=== PATIENT | male | born 1955 | race Caucasian/White ===

== ENCOUNTER 2020-11-30 00:59 | Inpatient (IN) | payer OTHER ==
[~2020-11-30] VITALS: Ht 185.4 cm; Wt 99.0 kg
--- NOTE | 2020-11-30 06:00 | NUR ---
PT ARRIVED TO ROOM 126 AT 0450 VIA STRETCHER, ABLE TO STAND AND TRANSFER SELF TO BED. PT IS ALERT/ORIENTED, REPORTS 10/10 EPIGASTRIC/STERNAL PAIN. LUNGS CLEAR, FINE CRACKLES IN BASES, ARRIVED ON 2L O2 VIA NC, BY THIS TIME, OXYGEN TITRATED TO 10L VIA OXYMASK. NON-PRODUCTIVE COUGH PRESENT. BOWEL TONES ACTIVE, NAUSEATED, DRY HEAVING WITH SMALL AMOUN OF EMESIS. SKIN GROSSLY INTACT WITHOUT EDEMA. IV PATENT, NEW 20G IV PLACED IN LEFT WRIST ON FIRST ATTEMPT. POTASSIUM AND MAGNESIUM REPLACED. DR. WELLER CALLED FOR PRN MEDS FOR COUGH, PAIN, AND NAUSEA. PT MEDICATED WITH 1MG IV DILAUDID, ZOFRAN, AND TESSALON PERLES. PT RESTING COMFORTABLY AFTER PAIN MEDS. CALL LIGHT WITHIN REACH.
--- NOTE | 2020-11-30 09:10 | NUR ---
PT WAKES EASILY AND IS ALERT AND ORIENTED. PT C/O 8/10 ABD/EPIGASTRIC PAIN, 1 MG IV DILAUDID GIVEN. PT GIVEN PILLS WITH SIPS OF WATER, ABLE TO JOSE EASILY. PT IS ABLE TO USE CALL LIGHT APPROPRIATLY. VITALS ARE WNL AT THIS TIME. PT REPORTS FEELING VERY FATIGUED. DENIES ANY OTHER NEEDS. BOTH IV SITES ARE INTACT, NO REDNESS OR SWELLING NOTED, BOTH FLUSH EASILY, PT DENIES PAIN AT EITHER SITE. CALL LIGHT IS WITHIN REACH, URINAL AT THE BEDSIDE.
--- NOTE | 2020-11-30 09:40 | NUR ---
PT GIVEN 650 MG PO TYLENOL FOR TEMP OF 101.3
--- NOTE | 2020-11-30 13:00 | NUR ---
Update from Rn, pt requiring 10L 02.
--- NOTE | 2020-11-30 13:12 | NUR ---
PT HAS LUNCH IN FRONT OF HIM AT THIS TIME, AND STATES THAT AFTER EATING AND COUGHING HIS ABD/EPIGASTIRC PAIN IS NOW AT 7/10, 1 MG IV DILAUDID GIVEN. PT ABLE TO ONLY EAT 3 BITES OF HIS SANDWICH. TAKES SIPS OF WATER.
--- NOTE | 2020-11-30 14:35 | EKG ---
[facility] [address] [facility] [place] [address] Signed Normal sinus rhythm Nonspecific T wave abnormality Abnormal ECG No previous ECGs available Confirmed by MONICA WELLER MD ([id number]) on 11/30/2020 2:35:42 PM Electronically Signed By: MONICA WELLER MD 11/30/20 1435 PATIENT NAME: EMRE GRIMES GRACIE Electrocardiogram DATE OF : 57 PHYSICIAN: MONICA WELLER MD REPORT #: [id number] REPORT IS CONFIDENTIAL AND NOT TO BE RELEASED WITHOUT AUTHORIZATION
--- NOTE | 2020-11-30 15:38 | NUR ---
MED REC COMPLETE
--- NOTE | 2020-11-30 16:40 | NUR ---
PT WAKES EASILY TO NOISE IN THE ROOM. PT DENIES NEED FOR PAIN MEDICATION AT THIS TIME. PT VITALS ARE WNL. PT USES URINAL AT THE BEDSIDE. PT DENIES ANY OTHER NEEDS AT THIS TIME. PT REPORTS BEING VERY TIRED.
--- NOTE | 2020-11-30 18:52 | NUR ---
PT ARRIVED TO FLOOR FROM CCU. PT IS TIRED BUT ORIENTED. 10L OXYMASK IS IN PLACE. PT LYING ON LEFT SIDE. VITALS TAKEN AND STABLE. DENEIS NEEDS. CALL LIGHT IN REACH.
--- NOTE | 2020-11-30 20:14 | NUR ---
awake, alert, O2 10L Oxymask 88-91%. proning encouraged, currently laying on L side, reinforce teaching, semi receptive. coop with assessment. lungs with insp fine crackles t/o. LBM 11/29. 2 SL Sarah patent. dry cough present. denies need ofr pain med or cough syrup. cont on airborne precautions
--- NOTE | 2020-11-30 23:11 | NUR ---
RESATING, CPOX IN PLACE, SATS 94%, O2 10L OXYMASK, LAYING ON R SIDE, PRONE POSITION, VOIDED LARGE AMOUNT OF DARK YELLOW URINE. USES URINAL, NO DISTRESS, FLUIDS AND CALL LIGHT AT BEDSIDE
--- NOTE | 2020-12-01 | NUR ---
awake, cpox in place, sats 86%, pt had taken oxymask off due to increased cough. proning position to r side, i was on my belly myback hurts, and i started coughing" stated. Oxymask 10L back on, sats 89-92%. R24. medicated with robitussin per requests, fresh water, voiding qs, [facility]inal[facility],
--- NOTE | 2020-12-01 02:00 | NUR ---
resting, O2 Oxymask in place, turns and repositions self, cpox 91%
--- NOTE | 2020-12-01 04:26 | NUR ---
Pt transferred to room 118 from ICU at change of shift. alert and oriented. tolerating liquids well, no emesis. O2 10L Oxymask, CPOx at bedside 88-92%, R 18-24, sob with exertion when turning or talking noted, lungs with crackles t/o and dim at bases. turns and repositions self. voiding QS using urinal. SL patent. Received Tylenol per c/o h/a, and robitussin syrup per cough both effective. Continues to have occassional moist productive at times of clear to yellow sputum. uses call light, alert and orneted independent inroom.
--- NOTE | 2020-12-01 07:25 | NUR ---
dr sierra notified of known if pt got Klor-Con 30mEq po and GI Cocktail as ordered at 1700. while pt was a pt in ICU. and of this am K level of 4.0. "Oh ok, thanks", no new orders
--- NOTE | 2020-12-01 08:00 | NUR ---
RECEIVED REPORT AROUND 0700. PT IN ROOM SLEEPING AT THAT TIME. UPON ENTERING PT ROOM IT WAS NOTED THAT O2 SATS WERE IN THE LOW TO MID 80'S% ON 10L O2 OXY MASK. PT WAS INCREASED AT FIRST TO 12L 02 AND THEN TO 15L O2 WITH O2 SATS THEN AROUND 88-90%. RT WAS CALLED TO PUT PT ON HIGH FLOW NC. UPPER LOBES CLEAR, ALL OTHER LOBES HAVE CRACKLES PRESENT. PT WORK OF BREATHING IS MODERATE. ABD SOUNDS MORE ON THE HYPOACTIVE SIDE. ABD IS TENDER TO TOUCH. NO OTHER ISSUES WERE NOTED WITH ASSESSMENT. PT ALSO DID STATE THAT HE WAS FEELING MUCH WORSE TODAY IN COMPARISON TO YESTERDAY. WILL CONTINUE TO MOINTOR.
--- NOTE | 2020-12-01 10:00 | NUR ---
PT IN ROOM. STILL ON 15L OXY MASK AND ON 15L HIGH FLOW NC. NO NEW CONCERNS NOTED AT THIS TIME.
--- NOTE | 2020-12-01 11:35 | NUR ---
ABG BLOOD GAS WAS DONE. LUNG CT DONE. BI-PAP ORDER IN AND RT WILL PUT PT ON BI-PAP. WAITING ON CT RESULTS. PT BACK IN BED. LINENS CHANGED WHILE IN CT. PT ALSO DUE TO VOID.
--- NOTE | 2020-12-01 12:58 | NUR ---
UPPER LOBES CLEAR, ALL OTHER LOBES HAVE CRACKLES PERSENT. PT ON BI-PAP AND O2 SATS ARE >90% SO FAR. PT JUST VOIDED 400MLS. THIS IS FIRST VOID OF THIS SHIFT. PT HAS NO APPETITE AT ALL. ABD SOUNDS PRESENT, PT DENIES TENDERNESS AT THIS TIME. NO NEW CONCERNS WERE NOTED. WILL CONTINUE TO MONITOR.
--- NOTE | 2020-12-01 15:24 | NUR ---
PT SO FAR ONLY VOIDED 400MLS. MD EMERSON IS AWARE. PT CAME OFF BI-PAP IN ORDER TO DRINK SOME ENSURE. O2 SATS QUICKLY DROPPED TO 80% ON RA. UPPER LOBES ARE CLEAR, ALL OTHER LOBES HAVE CRACKLES PRESENT. NO NEW CONCERNS HAVE BEEN NOTED AT THIS TIME.
--- NOTE | 2020-12-01 17:22 | NUR ---
AT START OF SHIFT PT O2 WAS INCREASED TO 15L HIGH FLOW NC BECAUSE PT O2 SATS WERE IN THE 80'S. PT ENDED UP ON 15L HIGH FLOW AND 15L OXY MASK AT THE SAME TIME TO MAINTAIN HIS O2 SATS >90%. PT WAS PUT ON C-PAP AND HAS BEEN DOING MUCH BETTER SINCE. O2 SATS >92% AND HIS WORK OF BREATHING HAS ALSO LESSEND. V/S WDL OVERALL, ABD PAIN HAS SUBSIDED PT HAS NOT HAD ANY N/V SO FAR THIS SHIFT. URINE OUTPUT OVERALL IS MARGINAL THOUGH. MD EMERSON AWARE. UPPER LOBES ARE CLEAR, LOWER LOBES HAVE CRACKLES PRESENT.NO OTHER ISSUES WERE NOTED WITH ASSESSMENTS. CHEST CT WAS DONE TO RULE OUT PE THIS MORNING ALSO.
--- NOTE | 2020-12-01 18:09 | NUR ---
Attempted to speak with pt, he has CPAP in place with 02. Called his Life partner Oskar. She states they live in [place]. 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 There street address is [address] [place] [address]. Pt does not have a pcp and Oskar would like to get him established with PFM where she is seen. I will send his chart. Anastasia sed possibility of 02 on DC. Oskar would like Alvin from [place]. Pt plans on dc to home on discharge.
--- NOTE | 2020-12-01 19:44 | NUR ---
RECIEVED REPORT FROM OSVALDO SHELL ON THIS PATIENT. HE IS CURRNLTY COVID +. PATIENT IS ON CPAP AT 80% FIO2, USES URINAL TO VOID AND HAS BEEN DRINKING FLUIDS.CALL LIGHT IN REACH WILL GO CHECK IN ON PATIENT TO DO ASSESSMENT.
--- NOTE | 2020-12-01 21:44 | NUR ---
IN ROOM TO DO PATIENT ASSESSMENT. PATIENT CONTINUES TO BE ON CPAP AT 80% FIO2. PATIENT HAS VOIDED 175 ML DARK URINE IN BEDSIDE URINAL. PATIENT DENIES ANY OTHER NEEDS AT THIS TIME. CALL LIGHT IN REACH
--- NOTE | 2020-12-01 23:21 | NUR ---
AT PATIENT'S DOOR TO CHECK ON HIM. HE IS LAYING ON HIS RIGHT SIDE, REMAINS ON CPAP AT 80% FiO2. ASKED PATIENT IF HE WAS DOING OK AND NEEDED ANYTHING RIGHT NOW HIS EYES WERE OPENED. HE STATES "NO" GIVES A THUMBS UP. CALL LIGHT IN REACH.
--- NOTE | 2020-12-02 02:22 | NUR ---
CHECKED ON PATIENT. HE IS ASLEEP WITH CPAP REMAINS ON 80% FiO2. CALL LIGHT IN REACH.
--- NOTE | 2020-12-02 04:00 | NUR ---
in room to check on patient and obtain vitals. he has drank 200 ml of water has not voided since last void recorded. has urinal. encouraged to continue drinking fluids for hydration. patietn was asleep prior to RN coming in, remains on CPAP 80% FiO2. call light in reach lying on right side withhead of bed elevated.
--- NOTE | 2020-12-02 04:50 | NUR ---
COLLECTED BLOOD FROM PATIENT AND SENT TO LAB
--- NOTE | 2020-12-02 06:43 | NUR ---
PATIENT HAS REMAINED ON CPAP AT 80% FiO2 THROUGHOUT THE NIGHT, HAS NOT HAD ANY NEEDS APPEARED TO HAVE SLEPT MOST OF THE NIGHT. USED URINAL TWICE, VOIDED DARK URINE . ENCOURAGED TO CONTINUE DRINKING FLUIDS.
--- NOTE | 2020-12-02 06:55 | NUR ---
IN TO TAKE PT WATER, PT WANTED TP BURNS TEETH, SWITCHED TO HIGHFLOW NG, PT O2 STILL LOW, RN COMING BACK TO THE ROOM, PT NOW ON TELE#1 TO MONITOR O2
--- NOTE | 2020-12-02 07:14 | NUR ---
REPORT RECEIVED FROM SUMAYA ESTES. PT SITTING UP IN BED BRUSHING TEETH WITH YULISSA HARRISON. PT ON 16L O2 BY [place] WITH OXYGEN SATURATIONS 79-81%. PT DENIES ADDITIONAL REQUESTS OR COMPLAINTS. CALL LIGHT WITHIN REACH. BED RAILS UP.
--- NOTE | 2020-12-02 07:38 | NUR ---
MORNING ASSESSMENT AND MEDICATION DUE. PT LYING ON LEFT SIDE WITH OXYGEN SATURATIONS 88-93% ON 16L O2 BY [place]. PT REPORTS HE HAS NOT BEEN PRONING DUE TO BACK PAIN. PT REPORTS 5/10 BACK PAIN AND BODY ACHES AT THIS TIME. PT ENCOURAGED TO TRY MEDICATIONS FOR HIS BODYACHES, AGREES, SEE MAR FOR MEDICAITON GIVEN. PT DENIES NAUSA. NO IV PRESENT IN RIGHT WRIST, IV DC'D, UNKNONW TIME WHEN THIS IV WAS TAKEN OUT. PT REPORTS HE WAS ABLE TO GET A GOOD NIGHTS SLEEP AND FELT THAT HE WANTED TO GET UP AND WALK AROUND THIS MORNING, HOWEVER AFTER BRUSHING HIS TEETH AND SITTING UP PT REPORTS "THAT WAS ALL I COULD DO, NOW IM WORN OUT." INSPIATORY WHEEZE NOTED THROUGHOUT LUNGS WITH CRACKELS IN LOWER LOBES. I.S. USE TAUGHT TO PT AND INSPIATORY WHEEZE RESOLVES. PT HAS FREQUENT COUGHING EPISODES AND REPORTS HE IS UNABLE TO TAKE DEEP BREATHS RELATED TO COUGHING, PT ENCOURAGED TO TRY COUGH MEDICATION, AGREES, SEE MAR FOR MEDICATION GIVEN. PT REPORTS HE HAS STARTED TO COUGH UP YELLOW SPUTUM IN SMALL AMOUNTS. PT DENIES DIARRHEA AND ANY LOSS OF TASTE OR SMELL. PT CONTINUES TO HAVE POOR APPITITE, CLEAR ENURE PROVIDED, PT DECLINES BREAKFAST. LOW URINE OUTPUT NOTED, WATER ENCORUAGED, PT ABLE TO DRINK 200ML, WATER REFILLED. PT REPORTS DRY THROAT FROM CPAP USE AND REQUESTS A BREAK FROM CPAP USE. PT AGREES TO TRY PRONE POSITION. PT ASSISTED INTO PRONING POSITION, SUPPORTED WITH PILLOWS. O2 SATRATIONS CLIMB TO 95% ON 15L O2 BY [place]. PT DENIES ADDITIONAL REQUESTSON OR COMPLAINS. CALL LIGHT WITHIN REACH. BED RAILS UP.
--- NOTE | 2020-12-02 09:14 | NUR ---
THIS RN TO ROOM TO CHECK ON PT. PT RESTING ON RIGHT SIDE, O2 SATURATIONS 90-98% ON 16L O2 BY NC. SCHAEFER, RT , TO BEDSIDE TO SET UP VAPOTHERM. EDUCATION DONE WITH PT REGARDING VAPOTHERM USE AND PURPOSE. PT VERBALIZES UNDERSTANDING AND STATES HE WANTS TO WAIT TO START VAPOTHERM USE UNTIL AFTER HE RESTS A WHILE LONGER IN PRONING POSIITON. PT REPOSITIONS SELF TO PRONE. NO ADDITIONAL REQUESTS OR COMPLAINTS. CALL LIGHT WITHIN REACH.
--- NOTE | 2020-12-02 10:03 | NUR ---
THIS RN TO ROOM TO CHECK ON PT. PT REMAINS IN PRONING POSITION WITH OXYGEN SATRUATIONS 90-95% ON 15L O2 BY NC. PT CONTINUES TO STATE HE WOULD LIKE TO REMAIN ON NC OPPOSED TO VAPOTHERM AT THIS TIME. PT REPOSITIONS SELF TO RIGHT SIDE. O2 SATURATIONS REMAIN ABOVE 90% ON 15L O2 BY NC. PT DEMONSTRATES USE OF I.S. REACHING 1500 X3. PT DENIES ADDITIONAL REQUESTS OR COMPLAINTS. CALL LIGHT WITHIN REACH. BED RAILS UP.
--- NOTE | 2020-12-02 10:30 | NUR ---
RETURN CALL PLACED TO [facility] FOR UPDATE FOR UPDATE ON PT STATUS. NO ANSWER AT THIS TIME. MESSAGE LEFT FOR CALL BACK.
--- NOTE | 2020-12-02 10:58 | NUR ---
KRISTIE RETURNED CALL. KRISTIE UPDATED ON PT STATUS AND PLAN OF CARE. KRISTIE VERBALIZES UNDERSTANDING AND STATES HER QUESTIONS HAVE BEEN ANSWERED.
--- NOTE | 2020-12-02 11:14 | NUR ---
THIS RN TO ROOM TO CHECK ON PT. PT RESTING ON RIGHT SIDE. PT DEMONSTRATES USE OF I.S. X5 REACHING 1250-1500ML. OXGYEN SATURATIONS 94-98% ON 15L O2 BY NC WHILE PT RESTS ON SIDE. PT DENIES ADDITIONAL REQUESTS OR COMPLAINTS. CALL LIGHT WITHIN REACH. BED RAILS UP.
--- NOTE | 2020-12-02 12:25 | NUR ---
LUNCH ARRIVED. PT REPORTS HE WOULD LIKE TO EAT HIS FRUIT. PT ASSISTED INTO SITTING POSITION. OXYGEN SATRATIOSN DROP TO 70%'S ON 15L O2 BY HIGH FLOW NC. PT PLACED ON VAPOTHERM WHILE SITTING AND EATING, SETTINGS 40LPM WITH 100% FIO2. OXGYEN SATRATIONS 86-89%. MD TO BEDSIDE FOR ROUNDS. MD UPDATED ON PTS STATUS.
--- NOTE | 2020-12-02 12:58 | NUR ---
AFTERNOON ASSESSMENT DUE. THIS RN TO ROOM. PT FINISHED WITH LUNCH. VERY MINIMAL APPITITE: ATE ABOUT 25% OF FRUIT PROIVDED FOR LUNCH. PT ABLE TO MAINTAIN OXYGEN SATRATIONS 87-90% ON VAPOTHERM AT 40LPM AND 100% FIO2 WHILE EATING IN SUPINE POSITION. PT DENIES NAUSEA AT THIS TIME. MINIMAL APPITITE. PT VERBALIZES UNDERSTANDING OF PLAN OF CARE EXPRESSED BY MD DURING ROUNDS. PT REPORTS 7/10 ACHING BACK PAIN. SEE MAR FOR MEDICATION GIVEN. CRACKELS NOTED IN LOWER LOBES OF LUNGS. PT ENCOURAGED TO WEAR CPAP FOR A TIME THIS AFTERNOON. PT AGREES. CPAP PLACED WTIH 80% FIO2. OXYGEN SATUATIN CLIMBES TO 96-98%. URINE OUTPUT BOARDERLINE, ORAL HYDRATION ENCOURAGED. REDDENED AREA NOTED ON SIDES OF FACE WHERE NC RUBS ON SKIN, FOAM BARRIERS APPLIED TO NC FOR FUTURE USE. LOTION APPLIED TO FACE. PT RESTING ON RIGHT SIDE, CPAP IN PLACE.NO ADDITIONAL REQUESTS OR COMPLAINS. CALL LIGHT WIHTIN REACH. BED RAILS UP.
--- NOTE | 2020-12-02 13:55 | NUR ---
VENOUS BLOOD GAS ORDERED. 5ML LAB DRAWN FROM RIGHT FORARM BY THIS RN WITH 22G BUTTERFLY NEEDLE. GAUZE AND COBAN APPLIED. PT TOLERATED PROCEEDURE WELL. PT REMAINS ON CPAP. RT CALLED TO [facility] FIO2 DWN PT HAS HAD SUSTAINED OXGYEN SATURATIONS AT 100% FOR 20 MINUTS. PT WEANED TO 60% FIO2 THROUGH CPAP. PT RESTIGN IN BED ON RIGHT SIDE. NO ADDITIONAL REQUESTS OR COMPLAINTS.
--- NOTE | 2020-12-02 14:51 | NUR ---
THIS RN TO ROOM TO CHECK ON PT. PT RESTING IN SUPINE POSITION WITH CPAP IN PLACE. OXYGEN SATURATIONS 92-96% ON CPAP WITH 60% FIO2. PT REPORTS BACK PAIN HAS IMPROVED, NOW 07/22. PT ASSISTED UP TO STAND AND VOID, CPAP LEFT IN PLACE. O2 SATURATIONS REMAIN 90%. PT BACK TO SUPINE POSITION. STATES HE WOULD LIKE TO REMAIN SO, WITH CPAP IN PLACE AT THIS TIME. PT DENIES ADDITIONAL REQUESTS OR COMPLAINTS. CALL LIGHT WITHIN REACH. BED RAILS UP.
--- NOTE | 2020-12-02 15:58 | NUR ---
PT HERE FOR COVID RELATED PNEUMONIA. PT UP WITH STAND BY ASSIST TO BEDSIDE COMODE AND TO USE URINAL, PT STEADY ON FEET BUT WEAK AND TIRES QUICKLY. PT TOLERATING REGULAR DIET BUT WITH VERY MINMIAL APPITITE. PT REMAINS ON 16L O2 BY HIGH FLOW NC WHILE PRONING OR SIDE LYING TO MAINTAIN OXYGENATION ABOVE 90%. VAPOTHERM AT 40LPM AND 100% FIO2 WHILE EATING MATINTAINS PT ABOVE 85%. PT USING CPAP WHEN SUPINE AND NOT EATING, CPAP WEANED TO 60% FIO2 THIS SHIFT WITH OXYGEN SATURATIONS ABOVE 92%. VBG LAB REPEATED, IMPROVING. PO FLUIDS ENCOURAGED. PT VOIDING QUANTITY SUFFICIENT. PT USES CALL LIGHT AND MAKES NEEDS KNOWN.
--- NOTE | 2020-12-02 16:22 | NUR ---
THIS RN TO ROOM TO CHECK ON PT. PT RESTING WITH EYES CLOSED, RESPIRATIONS EVEN AND UNLABORED, CPAP IN PLACE SET TO 60% FIO2. OXYGEN SATURATIONS 90-97%. PT ALLOWED TO REST UNDESTURBED. CALL LIGHT WITHIN REACH. BED RAILS UP.
--- NOTE | 2020-12-02 17:16 | NUR ---
DINNER ARRIVED. PT RESTING WITH EYES CLOSED IN SUPINE POSITION. PT AWAKENS TO MOVEMENT IN ROOM. PT REPRTS HE IS READY TO TRY TO EAT. PT SWITCHED FROM CPAP TO VAPOTHERM AT 40LPM AND 100% FIO2 WHILE EATING. OXGYEN SATURATIONS FALL FROM 95-98% ON CPAP AT 60% FIO2 TO 85-88% ON VAPOTHERM. PT REQUSTS COUGH MEDICATION. SEE MAR FOR MEDICATION GIVEN. NO ADDITIONAL REQUESTS OR COMPLAINTS AT THIS TIME. CALL LIGHT WITHIN REACH.
--- NOTE | 2020-12-02 17:55 | NUR ---
PT FINISHED WITH DINNER. PT ABLE TO EAT 30% OF DINNER WELL INCLUDING A CLEAR ENSURE. DRESSINGS TO IV SITES NOTED TO BE LOOSE. NEW DRESSINGS APPLIED PER PROTOCOL, SKIN PREP APPLIED. PT TOLERATED DRESSING CHANGES WELL. VITAL SIGNS STABLE. O2 STATURATIONS WHILE SUPINE 88-92% ON 40LPM 100% FIO2 VAPOTHERM. PT DENIES NEED TO VOID. PO FLUIDS ENCORUAGED. PT REPOSITIONED TO RIGHT SIDE LYING AND VAPOTHERM WEANED TO 25LPM AND 60%FIO2 WITH OXYGEN SATURATINS CONSISTANTLY ABOVE 90-95%. PT DENIES ADDITIONAL REQUESTS OR COMPLAINTS. CALL LIGHT WITHIN REACH. BED RAILS UP.
--- NOTE | 2020-12-02 19:25 | NUR ---
PATIENT RESTING IN BED ON HIS RIGHT SIDE ON VAPOTHERM 30L/MIN AT 70% FIO2. PATIENT HAS NO CURRENT NEEDS. REPORT GIVEN TO THIS RN FROM SUMAYA HEARD. PATIENT'S CALL LIGHT IS WITHIN HIS REACH.
--- NOTE | 2020-12-02 20:50 | NUR ---
O2 SAT MID 80'S IN TO ASSESS. pt SITTING IN BED ON VAPOTHERM. STATED "I CAN'T DO THIS I NEED TO BE ON CPAP" IN TO GIVE NIGHT MEDICATIONS. ASSISTED WITH CPAP, 60% FiO2. O2 SAT INCREASED TO LOW 90'S. VITALS RECORDED. NO URINE OUTPUT TO RECORD AT THIS TIME. CALL LIGHT WITHIN REACH. PRIMARY RN UPDATED.
--- NOTE | 2020-12-02 21:15 | NUR ---
PATIENT ON CPAP AT FIO2 OF 60% AND SATS IN THE MID 90'S. PATIENT ALREADY TOOK MEDS FROM JOSH CHARGE NURSE, INCLUDING SOME TYLENOL FOR A HEADACHE AND COUGH MEDICATION. PATIENT SAYS HE HAS NO NEEDS AT THIS TIME. ASSESSMENT COMPLETE AND CALL LIGHT IS IN REACH.
--- NOTE | 2020-12-02 22:39 | NUR ---
PATIENT RESTING QUIETLY ON HIS RIGHT SIDE ON HIS CPAP. SATS ARE 98% WITH A PULSE ON THE MONITOR OF 54BPM. PATIENT'S EVES ARE CLOSED AND RESPIRATIONS REGULAR. CALL LIGHT IS IN REACH.
--- NOTE | 2020-12-02 23:58 | NUR ---
WENT IN TO EMPTY PATIENT'S URINAL AND HE HAD VOIDED 275MLS. ASKED PATIENT IF THERE WAS ANYTHING THAT HE NEEDED AND IF HE WAS DOING OK. PATIENT GAVE THIS RN THE THUMBS UP. PATIENT'S CALL LIGHT IS IN REACH AND LIGHTS TURNED BACK DOWN.
--- NOTE | 2020-12-03 01:25 | NUR ---
PATIENT IS RESTING QUIETLY ON HIS RIGHT SIDE, RESPIRATIONS REGULAR, EYES ARE CLOSED, AND PATIENT REMAINS ON CPAP WITH 60% FIO2. CALL LIGHT IS IN REACH AND O2 SATS=95%.
--- NOTE | 2020-12-03 03:06 | NUR ---
PATIENT HAD TURNED TO HIS LEFT AND IS TURNING BACK TO HIS RIGHT SIDE NOW. PICKED UP THE PILLOWS THAT HAD FALLEN ON THE FLOOR AND ASKED THE PATIENT IF i COULD DO ANYTHING FOR HIM AND HE SAID,"NO I'M OK". CALL LIGHT IS IN REACH AND CPAP REMAINS ON AT 60% FIO2. O2 SATS ARE 99%.
--- NOTE | 2020-12-03 05:00 | NUR ---
PATIENT RESTING ON HIS RIGHT SIDE WITH CPAP ON, EYES CLOSED, RESPIRATIONS REGULAR, AND CALL LIGHT IN REACH. PATIENT'S O2 SATS ARE IN THE MID 90'S.
--- NOTE | 2020-12-03 06:50 | NUR ---
PATIENT'S URINAL EMPTIED, NEW WATER GIVEN, IV'S FLUSHED, COUGH SYRUP GIVEN, AND ASSESSMENT COMPLETE. NEW TELE BATTERY IN PLACE FOR SP02 MONITOR. O2 SATS IN THE MID 90'S. PATIENT'S LUNGS SOUND REALLY TIGHT THIS MORNING. PATIENT'S WHITE BOARD UPDATED AND HE HAS NO OTHER CARE NEEDS AT THIS TIME. CALL LIGHT IS IN REACH.
--- NOTE | 2020-12-03 07:26 | NUR ---
REPORT RECEIVED FROM VANDA SHELL. THIS RN ASSISTING JUAN RAMON (PTS ZARA RN) WITH MORNING CARES. PT RESTING IN BED IN SEMIFOWLERS POSITION, HEAD OF BED ELEVATED TO 23 DEGREES. O2 AT 95% ON CPAP WITH 60% FIO2. PT REPORTS HE DID NOT SLEEP WELL LAST NIGHT. WILL GO IN TO ASSESS AND PERFORM MORNING CARES
--- NOTE | 2020-12-03 07:28 | NUR ---
MORNING ASSESSMENT AND MEDICATION DUE. PT COTINUES RESTING IN SUPINE POSITION WITH CPAP AT 60% FIO2 IN PLACE. PT REPORTS HE FEELS "EXHAUSTED." PT STATES HE WASN'T ABLE TO SLEEP OR REST WITH VAPOTHERM IN PLACE LAST NIGHT BUT "GOT A LITTLE REST" WITH CPAP IN PLACE. OXYGEN SATURATIONS AT 92-96% ON CPAP AT 60%. PT REPORTS HE WOULD LIKE A BREAK FROM THE CPAP AT THIS TIME STATING "IT'S JUST SO MUCH." PT REPORTS 6/10 BACK PAIN AND BODY ACHES, SEE MAR FOR MEDIATION GIVEN. PT ALSO REPORTS HE IS MOBILIZING MORE SPUTUM THAN BEFORE. PT DESCRIBES SPUTUM "LANDA." COUGHING EPISODES NOTED, MEDCIATION GIVEN. PT NOTED TO BE VERY WEAK AND TIRED. APPEARS WORN OUT AT THIS TIME, STILL ABLE TO LIFT CUP TO DRINK AND REPOSTION SELF WITH EFFORT. TIRES QUICKLY, TACHYPEAN NOTED WITH ANY ACTIVITY. CRACKELS NOTED IN UPPER LOBES OF LUNGS TODAY WITH DEMINISHED SOUNDS IN BASES. PT UNABLE TO SIT UP FOR LUNG ASSESSMENT, ASSESSMENT DONE WITH PT LYING ON RIGHT SIDE. PT UNABLE TO USE I.S. AT THIS TIME RELATED TO EXHAUSTION. PT PLACED ON VAPOTHERM AT 30LPM AND 80%FIO2 FOR BREAK FROM CPAP. O2 SATURATIONS MAINTAINING ABOVE 90%. PT DECLINES BREAKFAST, DENIES NAUSA AND DIARRHEA. REDDENED SKIN TO CHECKS IMPROVING WITH FOAM BARRIERS IN PLACE. PT RESTING ON RIGHT SIDE WITH EYES CLOSED, SUPPORTED WITH PILLOWS. NO ADDITIONAL REQUESTS OR COMPLAINTS. CALL LIGHT WITHIN REACH.
--- NOTE | 2020-12-03 09:05 | NUR ---
THIS RN TO ROOM TO CHECK ON PT. PT RECENTLY UP TO USE BEDSIDE COMODE. PT REPORTS HE HAD A BOWEL MOVMENT. PT REMAINS ON VAPOTHERM AT 30LPM AND 80% FIO2 WITH OXYGEN SATURATIONS ABOVE 92%. PT CONTINUES TO APPEAR VERY EXHAUSETED. REPORTS BACK PAIN AT 4/10, IMPROVING WITH MEDICATION AND REST. PT DENIES ADDITIONAL REQUESTS OR COMPLAINTS. CALL LIGHT WITH WITHIN REACH.
--- NOTE | 2020-12-03 09:40 | NUR ---
JUAN RAMON, PTS PRIMARY CARE CARE RN UPDATED ON PTS STATUS AND MORNING ASSESSMENT. JUAN RAMON STATES HER QUESTIONS HAVE BEEN ANSWERED.
--- NOTE | 2020-12-03 10:23 | NUR ---
Patient placed to CPAP at this time per patient request. Patient's oxygen ranging from 86-88% on CPAP with FI02 at 60%. RT consulted at this time, per RT he will increased FI02 setting to 80%. Patient is awake, alert and oriented, he reports he is tired this morning. Call light within reach.
--- NOTE | 2020-12-03 11:30 | NUR ---
REPORT RECEIVED FROM SUMAYA DELATORRE. THIS RN ASSUMING PRIMARY CARE OF PT. THIS RN TO ROOM TO CHECK ON PT. PTS OXYGEN SATURATIONS 100% CONSISTANTLY ON 80% FIO2 BY CPAP. PT WEANED TO 45% FIO2 ON CPAP AND MAINTAINING OXYGEN SATURATIONS ABOVE 90% WHILE IN SUPINE POSITON WIHT HEAD OF BED ELEVATED TO 14 DEGREES. PT REPORTS 5/10 BACK PAIN BUT DENIES NEED FOR PAIN MEDICATION. PT DENIES ADDIITONAL REQUESTS OR COMPLAINTS. PT APPEARS TO HAVE MORE ENERGY NOW, ABLE TO CARRY ON CONVERSATION AND STAY FOCUSED WITH CPAP IN PLACE. CALL LIGHT WITHIN REACH. BED RAILS UP.
--- NOTE | 2020-12-03 12:32 | NUR ---
LUNCH ARRIVED, DELIVERED TO PT. MD TO BEDSIDE FOR ROUNDS. PT HYPEROXYGENATED WITH 100% FIO2 BY CPAP PRIOR TO REPOSITIONING FOR LUNCH. PT UP TO SITTNG POSITION, 100% O2 SATURATIONS ACHIEVED. PT SWITCHED TO VAPOTHERM AT 40LPM AND 100% FIO2 WHILE EATING LUNCH. OXGYEN SATURATIONS 88-92%. PT TIRES WITH MEAL TRAY SET UP, ASSISTED. NO ADDITIONAL REQUSTS OR COMPLAINTS. CALL LIGHT WITHIN REACH. BED RAILS UP.
--- NOTE | 2020-12-03 14:14 | NUR ---
AFTERNOON ASSESSMENT AND MEDICATION DUE. 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 PT DESATURATES TO 80% ON VAPOTHERM AT 40LPM ADN 100% FIO2. THIS RN TO ROOM. PT PLACED BACK ON CPAP AT 100% FIO2 TO RECOVER. STAND BY ASSIST BACK TO BED. PT DECLINES PRONING OR SIDE LYING TIME. PT REQUESTS TO REST IN SEMIFOWLER POSITION WITH CPAP IN PLACE. PT REPORTS 7/10 BACK PAIN AND BODY ACHES. SEE MAR FOR MEDICATION GIVEN. CRACKELS NOTED IN BASES OF LUNGS. PT CONTINUES TO TIRE QUICKLY WITH ANY ACTIVITIES, ASSISTANCE NEEDED WITH ADL CARE. PT UNABLE TO AMBULATE TO RESTROOM RELATED TO DYSPNEA ON EXERTION AND DROPPING O2 SATURATIONS. CPAP WEANED TO 50% FIO2 PT RECOVERS. PT ABLE TO MAINTAIN OXGYEN SATURATIONS 90-94% ON CPAP WITH 50% FIO2. PT VOIDING QUANTITY SUFFICIENT SO FAR THIS SHIFT. ORAL HYDRATION ENCOURAGED. PT RESTING WITH EYES CLOSED. NO ADDITIONAL REQUESTS OR COMPLAINTS. CALL LIGHT WITHIN REACH. BED RAILS UP.
--- NOTE | 2020-12-03 15:11 | NUR ---
THIS RN TO ROOM TO CHECK ON PT. PT RESTING IN SEMI FOWERL POSITION, DECLINES TIME PRONING AT THIS TIME. ENCOURAGED TO DO SO BUT CONTINUE TO DECLINE BUT AGREES TO SPEND TIME ON LEFT SIDE. PT ASSISTED TO LEFT SIDE, SUPPORTED WITH PILLOWS. CPAP WEANED TO 30% FIO2 WITH OXGYEN SATURATIONS 90-93%. PT REPORTS OINGOING BACK PAIN AT 5/10, DECLINES MEDICATION AT THIS TIME. NO ADDITONAL REQUESTS OR COMPLANTS. CALL LIGHT WITHIN REACH. BED RAILS UP.
--- NOTE | 2020-12-03 16:21 | NUR ---
THIS RN TO ROOM TO CHECK ON PT. PT REMAINS ON LEFT SIDE WITH CPAP IN PLACE AT 30% FIO2. OXGYEN SATURATIONS ABOVE 90%. DINNER ORDER PLACED FOR PT ALTHOUGH PT STATES HE HAS NO APPITITE. NO ADDITIONAL REQUESTS OR COMPLAINTS. CALL LIGHT WITHIN REACH. BED RAILS UP.
--- NOTE | 2020-12-03 17:26 | NUR ---
CALL PLACED TO KRISTIE, PTS SIGNIFICANT OTHER, FOR UPDATE ON PTS STATUS. KRISTIE UPDATED ON PT STATUS AND PLAN OF CARE. KRISTIE VERBALIZES UNDERSTANDING AND STATES HER QUESTIONS HAVE BEEN ANSWERED.
--- NOTE | 2020-12-03 17:32 | NUR ---
PT HERE FOR COVID 19 PNEUMONIA. PT UP WITH STAND BY ASSIST TO BED SIDE COMODE, BOWEL MOVEMENT THIS SHIFT. PT TOELRATING REGULAR DIET WITH VERY MINIMAL APPITITE, DECLIENS MOST MEALS. ENSURE PROVIDED THIS SHIFT. PT REQUIRES CPAP FOR MOST OF SHIFT WITH FIO2 DEPENDANT UPON POSITION: 30% FIO2 WHEN RESTING ON SIDES, 60% FIO2 WITH SITTING, 100% FIO2 WITH ACTIVITIES. PT PLACED ON VAPOTHERM DURING MEALS AND UNABLE TO MAINTAIN SATURATIONS ABOVE 90%, SATURATIONS ~84-88% DURING MEALS. LUNG SOUNDS COURSE THROUGHOUT AND DEMINISHED IN BASES. PRN TYELNOL GIVEN FOR BACK PAIN. COUGH MEDICAITON ENCORUAGED. PT DECLIENS PRONING THIS SHIFT. I.S. USE ENCORUAGED. PO INTAKE ENCORUAGED, PT VOIDING QUANTITY SUFFICIENT THIS SHIFT. PT USES CALL LIGHT APPORPIRATLY AND MAKES NEEDS KNOWN.
--- NOTE | 2020-12-03 18:24 | NUR ---
DINNER DELIVERED TO PT. PT HYPEROXYGENATED WITH CPAP AND TRANSISTIONED TO VAPOTHERM FOR DINNER. VITALS SIGNS STABLE. HEAD OF BED ELEVATED TO 40 DEGREES WITH VAPOTHERM IN PLACE AT 40LPM AND 100% FIO2 FOR DINNER. PT DENIES ADDITIONAL REQUESTS OR COMPLAINS. CALL LIGHT WITHIN REACH. BED RAILS UP.
--- NOTE | 2020-12-03 18:54 | NUR ---
PT REQUESTS TYELNOL FOR 5/10 BACK PAIN AND COUGH MEDICATION FOR COUGH. SEE MAR FOR MEDICATIONS GIVEN. CPAP PLACED AGAIN, AT 10 CPAP AND 60% FIO2, OXGYEN SATURATIONS ABOVE 90%. PT DENIES ADDITIONAL REQUESTS OR COMPLAINTS. CALL LIGHT WITHIN REACH. BED RAILS UP.
--- NOTE | 2020-12-03 19:45 | NUR ---
PATIENT RESTING IN HIS BED ON HIS RIGHT SIDE. RT SUNDAY JUST TURNED FI02 DOWN TO 50% ON PATIENT'S CPAP. PATIENT HAS NO CARE NEEDS AT THIS TIME AND SHIFT REPORT HAS BEEN GIVEN TO THIS RN BY SUMAYA HEARD.
--- NOTE | 2020-12-03 21:13 | NUR ---
PATIENT RESTING IN BED IN LOW-FOWLERS POSITION, BUT REMAINS ON CPAP AT 50% FI02. ICE WATER HAS BEEN REFILLED AND URINAL EMPTIED AND OUTPUT RECORDED. PATIENT IS AT 97% ON HIS O2 SAT AT THIS TIME. PATIENT DENIED THE NEED FOR ANY COUGH MEDICATION. PATIENT DENIES ANY OTHER CARE NEEDS AT THIS TIME. CALL LIGHT IS IN REACH.
--- NOTE | 2020-12-03 23:25 | NUR ---
PATIENT'S URINAL EMPTIED. PATIENT RESTING QUIETLY PARTIALLY ON HIS RIGHT SIDE, EYES CLOSED, REMAINS ON CPAP AT 50% FIO2 WITH A SAT=95%. CALL LIGHT IS IN REACH.
--- NOTE | 2020-12-04 00:50 | NUR ---
PATIENT HAS HAS TURNED TO HIS LEFT SIDE AND O2 SATS ARE AT 94% ON CPAP SET AT 50% FI02. CALL LIGHT IN REACH, PATIENT'S EYES CLOSED, NO PATIENT CARE NEEDS NOTED AT THIS TIME.
--- NOTE | 2020-12-04 03:00 | NUR ---
PATIENT HAS TURNED TO HIS BACK AND IS RESTING QUIETLY ON CPAP WITH PREVIOUSLY CHARTED SETTINGS. PATIENT'S EYES ARE CLOSED AND O2 SATS ARE IN THE MID 90'S. CALL LIGHT IS IN REACH.
--- NOTE | 2020-12-04 04:07 | NUR ---
PATIENT'S URINAL EMPTIED BY YULISSA GUO. NEW WARM BLANKETS GIVEN AND PATIENT HAS TURNED TO HIS RIGHT SIDE. CPAP SET ON 50% FI02. O2 SAT 99%. CALL LIGHT IS IN REACH.
--- NOTE | 2020-12-04 05:24 | NUR ---
YULISSA GUO HELPING WITH VS AND I+O. PATIENT REMAINS ON CPAP AT 50% FI02. PATIENT TURNING BACK TO HIS RIGHT SIDE FROM HIS BACK. O2 SATS ARE 93%. PATIENT'S ICE WATER WAS REFILLED AND PATIENT HAS NO OTHER CARE NEEDS AT THIS TIME. PATIENT'S CALL LIGHT IS IN REACH.
--- NOTE | 2020-12-04 08:00 | NUR ---
FIO2 DECREASED FROM 50% TO 45% JOSE WELL. BBS DIMINISHED WITH SCATTERED RALES IN THE BASES.
--- NOTE | 2020-12-04 08:25 | NUR ---
Patient on CPAP @ 45% FI02. Patient has no distress, positioned on back. Patient placed to vapotherm for approx five minutes so he could eat yogurt and drink a clear ensure, tolerated food well. Vapotherm settings 40l/100% FI02, patient's oxygen decreased to 88% while on the vapotherm eating. Patient reports he feels a bit better today, appetite slowly increasing. Patient has good po intake and q/s urine output this morning. Encouraged patient to at minimum lay side to side as he reports he cannot tolerate proning at this time. Patient receptive to plan of care and has no reported needs.
--- NOTE | 2020-12-04 11:00 | NUR ---
No change in plan for dc. Scheduled appt with new PCP Pilar Louie at [facility] for Dec 21 at 2:30. This DrMariella was requested by pts TEMITOPE Schmitt.
--- NOTE | 2020-12-04 12:11 | NUR ---
CPAP AND FIO2 REDUCED JOSE WELL WOB OK.
--- NOTE | 2020-12-04 15:44 | NUR ---
Patient resting on back, no distress noted. CPAP in place, settings 8L/40%FI02. Oxygen saturation is currently 92%. Personal supplies and call light within reach.
--- NOTE | 2020-12-04 17:00 | NUR ---
Patient on phone laying in bed, no distress. Vital signs taken and are stable, oxygen saturation is 94% on 9L per nc. Patient denies sob at this time. Dinner order placed. Urinal emptied. Fresh water provided. Patient denies needs. Personal supplies and call light within reach.
--- NOTE | 2020-12-04 20:04 | NUR ---
RECEIVED REPORT FROM DAY SHIFT RN. PATIENT IS RESTING IN BED. NO NEEDS NOTED. CALL LIGHT IN REACH.
--- NOTE | 2020-12-04 21:00 | NUR ---
PATIENT ASSESMENT COMPLETED. PATIENTS VITALS TAKEN AND RECORDED. INTAKE AND OUPUT RECORDED. PATIENT DENIES ANY SOB. PATIENT REMAINS ON 9L VIA NC. PATIENTS IV IS SL AND FLUSHES WELL. PATIENT GIVEN PRN COUGH MEDICATION PER ORDER. PATIENT DENIES ANY FURTHED NEEDS. CALL LIGHT IN REACH.
--- NOTE | 2020-12-05 00:24 | NUR ---
PATIENT IS RESTING IN BED WITH EYES CLOSED, RR 19. OXYGEN SATURATION IS 90%. CALL LIGHT IN REACH.
--- NOTE | 2020-12-05 02:04 | NUR ---
PATIENT IS RESTING IN BED WITH EYES CLSOED, RR 19. OXYGEN SATURATION IS 96% ON 9L VIA NC. CALL LIGHT IN REACH.
--- NOTE | 2020-12-05 05:10 | NUR ---
PATIENTS LABS DRAWN AND SENT TO LAB. PATIENTS VITALS TAKEN AND RECORDED. URINAL EMPTIED. INTAKE AND OUPUT RECORDED. TELE BATTERY CHANGED. PATIENT REMAINS ON 9L VIA NE. PATIENT DENIES SOB. PATIENT GIVEN PRN COUGH MEDICATION PER REQUEST. PATIENT IS ON TELE #1 AND OXYGEN SATURATION IS 93%. PATIENT IS RESTING IN BED ON HIS LEFT SIDE, AND HOB ELEVATED. PATIENT DENIES ANY PAIN. PATIENTS ICE WATER REFILLE. ASSESMENT COMPLTED. IVS X2 FLUSHED AND SL PER ORDER. PATIENT DENIES ANY NEEDS. CALL LIGHT IN REACH.
--- NOTE | 2020-12-05 07:33 | NUR ---
REPORT RECEIVED FROM NISA SHELL. PT RESTING IN BED ON BACK SIDE, OXYGEN SATURATION 92% ON 9L O2 BY HIGH FLOW HUMIDIFIED NC. PT RESTING WITH EYES CLOSED, RESPIRATIONS EVEN AND UNLABORED. PT ALLOWED TO REST UNDESTURBED. CALL LIGHT WITHIN REACH. BED RAILS UP.
--- NOTE | 2020-12-05 09:35 | NUR ---
MORNING ASSESSMENT AND MEDICATION DUE. PT RESTING IN BED WITH HEAD OF BED ELEVATED TO 20 DEGREES. PT DENIES PAIN, NAUSEA AND DIARRHEA. PT REPORTE 6/10 HEADACHE. SEE MAR FOR MEDICATION GIVEN. PT ON 8L O2 BY FL WITH OXYGEN SATURATIONS 86-88%. O2 INCREASED TO 10L O2 BY FL AND OXYGEN SATURATIONS CLIMB TO 89-92%. LUNG SOUNDS CLEAR IN UPPER LOBES, CRACKLES NOTED THROUGOUT LOWER LOBES. I.S. USE DEMONSTRATED. PT REACHS 1750 X5. STRONG COUGH NOTED. PT REPORTS COUGHING UP SPUTUM THAT IS "YELLOWISH GREEN WITH A LITTLE PINK IN IT." COUGH MEDICAITON RECENTLY GIVEN. PT CONTINUES TO REPORT DECREASED APPITTIE STATING "i JUST PICK AT MY FOOD." CLEAR ENSURE PROVIDED. PT DENIES ADDITIONAL REQUETS OR COMPLAINTS. REMAINS ON 10L O2 BY FL AT THIS TIME WITH OXGYEN SATURATIONS 89-91%. [facility]. BED RAILS UP.
--- NOTE | 2020-12-05 10:39 | NUR ---
SUMAYA GAINES NOTIFIED ABOUT O2. THIS TRANS ROUTER WAS TOLD TO REMIND PT ABOUT TAKING DEEP BREATHS. THIS TRANS ROUTER INSTRUCTED PT TO DO SO. O2 WENT UP TO 91 AT THIS MOMENT.
--- NOTE | 2020-12-05 10:40 | NUR ---
Called and spoke with Tommy. He states he took SS at age 63 and is self pay. Asked if he would like to speak with Anna to see if he qualifies for OHP and he would like to do so. Called and requested Anna call pt or his SO as he gave permission for her to assist as he is weak, sob, and tired.
--- NOTE | 2020-12-05 10:41 | NUR ---
THIS RN TO ROOM WITH MD FOR ROUNDS. PT LYING ON LEFT SIDE. OXYGEN SATURATIONS 90-94% ON 10L O2 BY NC. PT STATES HE IS READY FOR A SHOWER. O2 PT DESATURATING WITH ACTIVITY TO 85%. PT BACK TO BED AND HYPEROXYGENATED PRIOR TO SHOWER. O2 INCREASED TO 16L O2 BY NC. PT ALLOWED TIME TO DEEP BREATH AND HYPER OXGENAT AND WILL TRY AGAIN FOR SHOWER. CALL LIGHT WITHIN REACH. BED RAILS UP.
--- NOTE | 2020-12-05 11:15 | NUR ---
PT READY FOR SHOWER. HYPEROXYGENATED FROM 98-100% ON 16L O2 BY HIGH FLOW NC. STAND BY ASSIST UP TO SHOWER. PT INDEPENDANT IN SHOWER. LINENS CHANGED. PT DEMONSTRATES USE OF CALL LIGHT. CALL LIGHT WITHIN REACH.
--- NOTE | 2020-12-05 11:45 | NUR ---
PT FINISHED WITH SHOWER. O2 SATURATIONS DROPING TO 86% WITH ACTIVITY/SHOWER ON 16L O2 BY MO. PT AMBULATES BACK TO BED. UNSTEADY ON FEET AT TIMES, REPORTS OCCATIONAL DIZZINESS. OXYGEN SATURATIONS RECOVERS AFTER 5 MINUTES TIME. PT WEANED BACK TO 10L O2 BY MO WITH OXYGEN SATURATIONS 90-92%. CALL LIGHT [place] REACH. BED RAILS UP. PT DECLINES LUNCH STATING HE ONLY WANTS CLEAR ENSURE.
--- NOTE | 2020-12-05 12:09 | NUR ---
CLEAR ENSURES PROVIDED FOR LUNCH. PT ASSISTED UP TO CHAIR FOR LUNCH. OXGYEN SATURATIONSDROP TO 84% ON 10L O2 BY NC WITH TIME UP TO CHAIR. O2 INCREASED TO 16L O2 BY NC FOR ACTIVITY. PT REPORTS HE WOULD LIKE TO SIT IN THE CHAIR "FOR A WHILE. IT FEELS SO GOOD TO BE UP." NO ADDITIONAL REQUESTS OR COMPLAINTS. CALL LIGHT WITHIN REACH.
--- NOTE | 2020-12-05 14:22 | NUR ---
AFTERNOON ASSESSMENT DUE. PT CALL LIGHT ON. PT REPORTS HE "HAD A BOWEL MOVMENT AND I NEED THE SHEETS CHANGED." THIS RN TO ROOM. PT REPORTS BOWEL MOVEMENT WAS LARGE, SOFT, AND BROWN/YELLOW. SMEER NOTED ON SHEETS THROUGH DRAW SHEET AND TO UNDER SHEET. PT ASSISTED WITH ADDITIONAL [place]. LINENS CHANGED. PT DENIES DIARRHEA OR URGE INCONTINANCE. PT REPORTS 5/10 BACK PAIN, SEE MAR FOR MEDICATION GIVEN. LUNG SOUND CLEAR IN UPPER LOBES. DEMINISHED, TIGHT WITH SOME MINOR CRACKELS IN LOWER LOBES. I.S. USE DEMONSTRATED. PT REACHES 1500ML X5. PT CONTINUES TO TIRE QUICKLY. O2 SATURATIONS DROP TO 86% WHILE PT IS UP TO CHAIR DURING LINEN CHANGE ON 16L O2 BY NC. PT ENCOURAGED TO PRONE. PT ASSISTED INTO PRONING POSITON. O2 WEANED TO 7L O2 BY NC WHILE PRONING WITH OXYGEN SATURATIONS ABOVE 90%. 100ML DARK YELLOW URIN NOTED IN URINAL. PO FLUIDS ENCORUAGED. ADDITIONAL GLASS IF ICE WATER PROVIDED. PT CONTINUES RESTING IN PRONE POSITION. NO ADDITIONAL REQUESTS OR COMPLAINTS. CALL LIGHT WITHIN REACH.
--- NOTE | 2020-12-05 15:43 | NUR ---
THIS RN TO ROOM TO CHECK ON PT. PT CONTINUES PRONING. OXYGEN SATURATIONS OF 96% ON 7L O2 BY NC. PT RESTING WITH EYES CLOSED. RESPIRATIONS EVEN AND UNLABORED. PT ALLOWED TO REST. CALL LIGHT WITHIN REACH. BED RAILS UP.
--- NOTE | 2020-12-05 16:11 | NUR ---
PTS LIFE PARTNER, KRISTIE, CALLED WITH UPDATE. KRISTIE UPDATED ON PTS STATUS AND PLAN OF CARE. KRISTIE VERBALIZES UNDERSTANDING OF PLAN OF CARE AND STATES HER QUESTIONS HAVE BEEN ANSWERED.
--- NOTE | 2020-12-05 16:35 | NUR ---
PT HERE FOR COVID RELATED PNEUMONIA. STAND BY ASSIST UP TO SHOWER THIS SHIFT. PT ABLE TO SIT UP TO CHAIR FOR MEALS. MINIMAL APPITITE THIS SHFIT. ENSURE PROVIDED. OXYGEN NEEDS DEPENDANT ON POSITION. 16L FOR SHOWER AND WHILE UP TO CHAIR, 10L WHILE RESTING IN BED, 7L WHILE PRONING TO MAINTAIN OXYGEN SATURATIONS ABOVE 90%. PT PARTICIPATING IN PRONING PROTOCOLS. I.S. USE ENSURED. PRN PAIN MEDICAITON GIVEN FOR BACK PAIN. COUGH MEDICATION GIVEN. PT VOIDING QUANTITY SUFFICIENT, PO FLUIDS ENCORUAGED. PT USES CALL LIGHT AND MAKES NEEDS KNOWN.
--- NOTE | 2020-12-05 17:39 | NUR ---
DINNER DELIVERED TO PT. PT REMAINS IN PRONING POSITION. OXYGEN SATURATIONS 95% ON 7L O2 BY NC. STAND BY ASSIST UP TO CHAIR. O2 SATURATIONS DROP TO 88%. OXYGEN INCREASED TO 10L O2 BY NC FOR ACTIVITY, WITH OXGYEN SATURATIONS MAINTINAING N 90%'S. PT EATING DINNER. REPORTS 4/10 BACK PAIN. NO ADDITIONAL REQUESTS OR COMPLAINTS. CALL LIGHT WITHIN REACH. BED RAILS UP.
--- NOTE | 2020-12-05 18:40 | NUR ---
THIS RN TO ROOM TO CHECK ON PT. PT REMAINS UP TO CHAIR RESTING AFTER DINNER. PT CONTINUES TO DENY NEED TO VOID, WILL CONTINUE TO MONITOR. O2 SATURATIONS 93% ON 10L O2 BY NC. NO ADDITIONAL REQUESTS OR COMPLAINTS. CALL LIGHT WITHIN REACH.
--- NOTE | 2020-12-05 19:27 | NUR ---
REPORT GIVEN TO SUMAYA PAULA, WHO IS ASSUMING CARE OF PT.
--- NOTE | 2020-12-05 20:02 | NUR ---
RECEIVED REPORT FROM DAY SHIFT RN. PATIENT IS RESTING IN CHAIR. NO NEEDS NOTED. CALL LIGHT IN REACH.
--- NOTE | 2020-12-05 20:35 | NUR ---
PATIENT ASSESMENT COMPLETED. VITALS TAKEN AND RECORDED. URINAL EMPTIED AND INTKAE AND OUPUT RECORDED. PATIENT REMAINS ON 10L HI-FLOW VIA NC. PATIENT DENIES ANY SOB. PATIENTS IVS FLUSHED AND ARE SL PER ORDER. PATIENT REPORTS DISCOMFORT IN HIS BACK "FROM THIS BED". PATIENT GIVEN PRN TYLENOL PER ORDER. FRESH WATER PROVIDED. PATIENT DENIES ANY FURTHER NEEDS. CALL LIGHT IN REACH.
--- NOTE | 2020-12-05 23:13 | NUR ---
PATIENT CALLED AND REQUESTED "COUGH MEDICATION". PATIENT GIVEN PRN MEDICATION PER ORDER. PATIENT IS RESTING IN BED, APPEARS COMFORTABLE. PATIENT DENIES ANY SOB. NO FURTHER NEEDS. NOTED. CALL LIGHT IN REACH. PATIENT REMAINS ON 1OL VIA [employer] [employer] HI-FLOW. ON TELE #1, OXYGEN SATURATION IS AT 92%. CALL LIGHT IN REACH.
--- NOTE | 2020-12-06 01:10 | NUR ---
PATIENT IS RESTING IN BED WITH EYES CLOSED ON HIS BACK WITH HOB ELEVATED, RR 18. PATIENT IS ON TELE #1, OXYGEN SATURATION IS 95% ON 10L VIA NC. CALL LIGHT IN REACH.
--- NOTE | 2020-12-06 02:19 | NUR ---
PATIENTS URINAL EMPTIED. PATIENT IS RESTINGI N BED WITH EYES CLOSED. BREATHING IS EVEN AND UNLABORED, RR 16. CALL LIGHT IN REACH. PATIENT IS ON TELE # 1 AND OXYGEN SATURATION IS 93%.
--- NOTE | 2020-12-06 05:54 | NUR ---
ICE WATER REFILLED. URINAL EMPTIED. INTAKE AND OUPUT RECORDED. VITALS TAKEN AND RECORDED. PATIENT REMAINS ON 10L VIA NC HI-FLOW. PATIENT DENIES ANY SOB. PATIENT DENIES ANY NEEDS. CALL LIGHT IN REACH.
--- NOTE | 2020-12-06 07:20 | NUR ---
REPORT RECEIVED FROM NISA SHELL. PT RESTING IN BED, O2 SATURATIONS AT 92% ON 10L O2 BY NC. PT DENIES REQUESTS OR COMPLAINTS. CALL LIGHT WITHIN REACH. BED RAILS UP.
--- NOTE | 2020-12-06 08:15 | NUR ---
HIEN ASSESSMENT AND MEDIATION DUE. THIS RN TO ROOM. PT WORKING WITH RESPIRATORY THERAPY USING CORNET AND I.S. PT 90-92% ON 10L O2 BY NC WITH REST. STAND BY ASSIST UP TO CHAIR FOR BREAKFAST. PT DROPS TO 84-88% ON 10L O2 BY NC. O2 INCRASED TO 14L O2 BY NC. DEEP BREATHING ENCORUAGED. OXGYEN SATURATIONS CLIMB TO 88-90% WHILE UP TO CHAIR. PT ALERT AND OREINTED. ASKING QUESTIONS ABOUT DICHARGE AND WHAT TO DO AT HOME. EDUCATION DONE WITH PT REGARDING HOME OXYGEN USE, PRONING, I.S. USE AND FOLLOW UP CARE. PT VERBALIZES UNDERSTANDING. LUNG SOUNDS CLEAR THROGHOUT, TIGHT IN UPPER LOBES AND DEMINISHED IN LOWER LOBES. I.S. USE DEMONSTRATED X5 REACHING 1250ML. PRODUCTIVE COUGH NOTED. WITH CLEAR TO YELLOW SPUTUM. ORAL HYDRATION ENCOUARGED. PT REMAINS UP TO CHAIR. O2 SATURATIONS NOTED TO BE 86-88% WHILE PT IS UP. OXYGEN INCREASED TO 16L O2 BY NC WITH SATURATINS CLIMBING TO 90%. PT REPORTS HE HAS QUESTIONS ABOUT THE VACCINE BUT "CAN'T REMEBER THEM ALL." PEN AND PAPER PROVIDED TO PT TO WRITE DOWN HIS QUESTIONS. PT DENIES ADDITIONAL REQUESTS OR COMPLAINTS AT THIS TIME. CALL LIGHT WITHIN REACH.
--- NOTE | 2020-12-06 09:56 | NUR ---
NEW ORDER FORM MD RECEIVED FOR PT TO BE ON CPAP. MESSAGE SENT TO CLARIFY IF CPAP IS NEEDED ALL THE TIME OR OF MAINTINING O2 SATURATIONS ON HIGH FLOW NC IS OKAY. AWAITING RESPONSE.
--- NOTE | 2020-12-06 10:10 | NUR ---
THIS RN TO ROOM TO CHECK ON PT. PT MAINTAIN OXYGEN SATURATIOSNA PILAR 90% ON 16L O2 BY NC WITH ACTIVITY. VITAL SIGNS STABLE. PT UP TO SHOWER. OXGYEN SATRUATIOSN 89-93% WITH SHOWER. PT INDEPENDANT IN SHOWER. NO ASSISTANCE NEEDED. LINENS CHANGED. PT DEMONSTRATES USE OF CALL LIGHT. CALL LIGHT WTH[place] REACH.
--- NOTE | 2020-12-06 10:30 | NUR ---
PT FINISHED WITH SHOWER. PT DRESSES SELF AND APPLIES HIS OWN SOCKS. STAND BY ASSIST BACK TO BED. OXGYEN SATURATIOSN MAINTAINING ABOVE 90% ON 16L O2 BY HIGH FLOW NC WITH ACTIVITY. PT BACK TO BED AND SIDE LYING ON RIGHT SIDE. O2 WEANED TO 8L O2 BY NC WITH OXYGEN SATURATIONS MAINTAINING ABOVE 90%. LUNCH ORDER PLACED. CALL LIGHT WITHIN REACH. BED RAILS UP. NO ADDITIONAL REQUESTS OR COMPLAINTS.
--- NOTE | 2020-12-06 11:05 | NUR ---
THIS RN TO ROOM TO CHECK ON PT. PT REMAINS ON RIGHT SIDE. OXGYEN SATURATIONS 90-94% ON 10L O2 BY NC. PT DENIES REQUESTS ORCOMPALINTS AT THSI TIME. CALL LIGHT WITHIN REACH. BED RAILS UP.
--- NOTE | 2020-12-06 12:39 | NUR ---
LUNCH ARRIVED. PT RESTING IN BED ON LEFT SIDE. PT REPORTS HE HAS BEEN "USING MY BREATHING TOOLS." STAND BY ASSIST UP TO RESTROOM, PT REPORTS NEED TO HAVE BOWEL MOVEMENT. O2 INCREASED TO 16L O2 BY HIGH FLOW NC WITH ACTIVITY. PT PERFORMS SELF [place] [facility]. STAND BY ASSIST UP TO CHAIR. PT DEMONSTRATES USE OF I.S. REACHING ML. PT EATING LUNCH. O2 SATURATIONS REMAIN ABOVE 90% ON 16L O2 BY NC. NO ADDITIONAL REQUESTS OR COMPLAINTS. CALL LIGHT WITHIN REACH.
--- NOTE | 2020-12-06 13:50 | NUR ---
AFTERNOON ASSESSMENT DUE. PT REMAINS UP TO CHAIR. PT DENIES NAUSEA. PT REPORTS 3/10 BACK PAIN AND DENIES NEED FOR MEDICATION AT THIS TIME. OXYGEN SATURATION 93% ON 16L O2 BY NC WHILE UP TO CHAIR. LUNG SOUNDS CLEAR THROUGHOUT ALTHOUGH GENERALLY TIGHT AND DEMINISHED IN LOWER LOBES. PT CONTINUES TO HAVE DYSPNEA ON EXERTION AND REQUIRES INCREASED OXYGEN WHILE UP TO CHAIR AND WITH ACTIVITIES. PT REQUIRING ONLY 10L O2 WHILE IN BED AND WITH REST TO MAINTAIN OXYGEN SATURATIONS ABOVE 90%. PT DEMONSTRATES USE OF I.S. AND IS NOTED TO HAVE INCREASED ABILITY TO TAKE DEEPER BREATHS, PT NOW REACHING 2000ML WITH I.S. USE X10. PTS APPITITE IMPROVING, PT ATE 100% OF LUNCH AND DRINKING CLEAR ENSURES WITH MEALS. PT REPORTS HE HAS MULTIPLE QUESITONS AND IS NOW BETTER ABLE TO THINK, "I FEEL LIKE I CAN THINK MORE CLEARLY NOW." GREATER THAN 30MINUTES SPENT WITH PT ANSWERING QUESTIONS ABOUT PLAN OF CARE, OXYGEN USE, AND COVID 19. PT VERBALZIES UNDERSTANDING AND STATES HIS QUESTIONS HAVE BEEN ANSWERED. PT REMAINS UP TO CHAIR AT THIS TIME STATING HE WOULD LIKE TO REMAIN SO UNTIL HE HAS HAD THE OPPORTURNITY TO TALK WITH THE DOCTOR. CALL LIGHT WITHIN REACH.
--- NOTE | 2020-12-06 14:14 | NUR ---
Patient is talking with RN. Vitals, I&Os are complete. Call light is in reach. There are no requests at this time.
--- NOTE | 2020-12-06 15:23 | NUR ---
PT CALL LIGHT ON. PT REMAINS UP TO CHAIR. 95% ON 16L O2 BY NC. PT REPORTS HE IS UPSET AND NOT IN AGREEMENT WITH THE PLAN OF CARE STATING "I DON'T WANT TO GO BACK ON THAT CPAP THING. PT STATES HE WOULD LIKE TO SPEAK WITH THE DOCTOR AGAIN. NOTIFIED, CHARGE NURSE UPDATED.
--- NOTE | 2020-12-06 15:59 | NUR ---
UNABLE TO MEET WITH PT AT THIS TIME. THIS RN TO ROOM TO TALK WITH PT ABOUT CPAP USE. PT STATES "I'M JUST REALLY DIAPPOINTED, IT FEELS LIKE I'VE DONE ALL THIS WORK AND NOW WE ARE GOING BACKWARDS." EDUCATION DONE REGARDING CPAP USE AND GOALS FOR DISCHARGE. PT VERBALIZES UNDERSTANDING AND STATES HE WOULD LIKE TO TRY THE CPAP AGAIN. RT CALLED AND WILL COME IN TO SET UP CPAP. STAND BY ASSIST BACK TO BED. PT LYING ON RIGHT SIDE, O2 WEANED TO 10L O2 BY NC WITH OXYGEN SATURATIONS ABOVE 90%. SILVANO RT TO BEDSIDE TO SET UP CPAP. NO ADDITIONAL REQUESTS OR COMPLAINTS AT THIS TIME. CALL LIGHT WITHIN REACH. BED RAILS UP.
--- NOTE | 2020-12-06 16:17 | NUR ---
PLACED ON CPAP PER DR. ЮЛИЯ GARCIA WELL [facility] [place]. BBS DIMINISHED THROUGHOUT.
--- NOTE | 2020-12-06 17:00 | NUR ---
THIS RN TO ROOM TO CHECK ON PT. PT RESTING ON BACK IN BED. PT DENIES PAIN AND NAUSEA AT THIS TIME. CPAP IN PLACE PLACED BY RT WITH 40% FIO2 AND 14 CPAP. OXYGEN SATURATIONS OF 93-96%. PT DENIES ADDITIONAL REQUESTS OR COMPLAINTS. CALL LIGHT WITHIN REACH. BED RAILS UP.
--- NOTE | 2020-12-06 17:33 | NUR ---
Discussed in 08 meeting and pt will not dc today. Pt remains on 02 at 10 and using CPAP.
--- NOTE | 2020-12-06 17:56 | NUR ---
THIS RN TO ROOM TO CHECK ON PT. DINNER DELIVERED. CPAP REMOVED AND PT PLACES O2 BY NC ON SET TO 16L FOR ACTIVITY. STAND BY ASSIST UP TO CHAIR FOR DINNER. O2 SATURATIONS MAINTAINING ABOVE 90% ON 16L O2 BY HIGH FLOW HUMIDIFIED NC. PT CONTINUES TO DENY PAIN AND NAUSEA. NO ADDITIONAL REQUSTS OR COMPLAINTS. CALL LIGHT WITHIN REACH.
--- NOTE | 2020-12-06 18:51 | NUR ---
PT HERE FOR COVID RELATED PNEUMONIA. PT UP IN ROOM WITH STAND BY ASSIST TO CHAIR FOR MEALS AND UP FOR SHOWER. PT TOLERATING REGULAR DIET WITH MINIMAL APPITITE, CLEAR ENSURE PROVIDED WITH ALL MEALS. PT REMAINS ON 10L O2 BY NC WITH REST IN BED ON SIDES OR PRONING. 16L O2 WHEN UP IN ROOM WITH ACTIVITIES. CPAP ADDED TO ORDERS THIS SHIFT TO INCREASE AIR FLOW. PT TOLERATES CPAP WELL. PT PARTICIPATING IN PRONING PROTOCOLS. I.S. USE ENSURED WITH IMPROVING VOLUMES THIS SHIFT. PT VOIDING QUANTITY SUFFICIENT. PT USES CALL LIGHT AND MAKES NEEDS KNOWN.
--- NOTE | 2020-12-06 19:54 | NUR ---
RECEIVED REPORT FROM DAY SHIFT RN. PATIENT IS RESTING IN BED WITH CPAP ON. BREATHING IS EVEN AND UNLABORED. RR 20. CALL LIGHT IN REACH.
--- NOTE | 2020-12-06 21:55 | NUR ---
PATIENT ASSESMENT COMPLETED. PATIENT DENIES ANY SOB AND IS CURRENTLY WEARING CPAP. PATIENTS ICE WATER REFILLED. URINAL EMPTIED. INTAKE AND OUPUT RECORDED. VITALS TAKEN AND RECORDED. PATIENT DENIES ANY FURTHER NEEDS. PATIENT PROVIDED WITH POSITIVE REASSURANCE. CALL LIGHT IN REACH.
--- NOTE | 2020-12-07 01:19 | NUR ---
TELE BATTERY REPLACED. PATIENT IS RESTING IN BED WEARING CPAP AND EYES ARE CLOSED. OXYGEN SATURATION ON TELE IS 97%. PATIENT IS RESTING IN HIS RIGHT SIDE. CALL LIGHT IN REACH.
--- NOTE | 2020-12-07 05:59 | NUR ---
VITALS TAKEN AND RECORDED. URINAL EMPTIED. INTAKE AND OUPUT RECORDED. PATIENT IS RESTING IN BED WITH CPAP IN USE. PATIENT DENIES ANY SOB. ICE WATER REFRESHED. NO FURTHER NEEDS NOTED. CALL LIGHT IN REACH.
--- NOTE | 2020-12-07 07:14 | NUR ---
REPORT RECEIVED FROM SUMAYA PAULA. PT RESTING IN BED ON RIGTH SIDE WITH HEAD OF BED ELEVATED. PT OTLERATING 6L O2 BY [facility] O2 SATURATIONS ABOVE 90%, 97% AT THIS TIME. PT DENIES REQUESTS OR COMPLAINTS. CALL LIGHT WITHIN REACH. BED RAILS UP.
--- NOTE | 2020-12-07 09:21 | NUR ---
MORNING ASSESSMENT AND MEDICAITON DUE. PT UP TO CHAIR, FINISHED WITH BREAKFAST. PT REPORTS HE DID NOT LIKE THE SCRAMBELED EGGS AND THEREFORE DIDN'T EAT VERY MUCH. PT REPORTS HE IS ABLE TO TASTE HIS FOOD. CLEAR ENSURE PROVIDED X2. PT REPORTS 5/10 BACK PAIN PER BASELINE, DENIES NEED FOR MEDICATION AT THIS TIME. DRESSING TO IV OVER LEFT WRIST LOOSE, IV NO LONGER NEEDED, DC'D PER PROTOCOL, GAUZE AND COBAN APPLIED. IV TO LEFT AC WNL, NO S/S/ OF PHLEBITIS, FLUSHED AND ALCOHOL CAP APPLIED. PT TALKITIVE THIS MORNING AND TELLING STORIES. LUNGS CLEAR. PT TOLERATING 8L O2 BY NC UP TO CHAIR WITH OXYGEN SATURATIONS OF 96%. PT WEANED TO 4L O2 BY NC AND MAINTAINING OXYGEN SATURATIONS ABOVE 90%, CURRENTLY 92%. I.S. USE DEMONSTRATED PT REACHES 2000ML X2. PT DENIES NAUSEA, VOMITING, OR CONSTIPATION. PT DENIES ADDITIONAL REQUESTS OR COMPLAINTS. CALL LIGHT WITHIN REACH.
--- NOTE | 2020-12-07 11:11 | NUR ---
THIS RN TO ROOM TO CHECK ON PT UP TO CHAIR. OXGYEN SATURATION 92% ON 4L O2 BY NC. PT UP TO AMBULATE IN ROOM AND THEN TO SHOWER. OXGYEN INCREASED TO 8L O2 BY NC FOR ACTIVITY AND PT ABLE TO MAINTAIN OXGYEN SATURATIONS ABOVE 90%. PT INDEPENDANT IN SHOWER, DEMONSTRATES USE OF CALL LIGHT. CALL LIGHT WITHIN REACH. LINENS CHANGED.
--- NOTE | 2020-12-07 11:30 | NUR ---
PT FINISHED WITH SHOWER. INDEPENDANT TO DRESS AND GET BACK TO BED. O2 SATURATIONS REMAIN ABOVE 90% ON 8L WITH ACTIVITY. CLIBING TO 99% WITH REST PT WEANED BACK TO 4L O2 BY NC WITH OXGYEN SATURATIONS REMAINING ABOVE 90%. PT RESTING ON RIGHT SIDE. LUNCH ORDER PLACED. CALL LIGHT WITHIN REACH. NO ADDITIONAL REQUESTS OR COMPLANTS AT THIS TIME.
--- NOTE | 2020-12-07 12:38 | NUR ---
LUNCH DELIVERED. STAND BY ASSIST UP TO CHAIR FOR LUNCH. PT DEMONSTRATES USE OF I.S. X5 REACHING 2000ML. PT TOLERATING 4L O2 BY NC WITH OXGYEN SATURATIONS ABOVE 90%. CALL LIGHT WITHIN REACH.
--- NOTE | 2020-12-07 14:08 | NUR ---
AFTERNOON ASSESSMENT DUE. PT UP TO RESTROOM INDEPENDANTLY. PT REMAINS ON ONLY 4L O2 BY VA WITH OXGYEN SATRATIONS ABOVE 90%. SMALL LOOSE BOWEL MOVEMENT NOTED. PT INDEPENDANT BACK TO BED. PT REPORTS 4/10 BACK PAIN AND DENIES NEED FOR MEDICATION AT THIS TIME. PT REPORTS HIS ENERGY LEVEL AND WEEKNESS HAVE "REALLY GOTTEN BETTER. I CAN MOVE AROUND WITHOUT FEELING LIKE I'M GOING TO TIP OVER." LUNG SOUNDS CLEAR. PT DEMONSTRATES USE OF I.S. REACING 2000ML X5. COUGH IMPROVING WITH OCCATIONAL WHITE/YELLOW SPUTUM. PT REAMINS ON 4L O2 BY VA WITH OXGYEN SATURATIONS ABOVE 90%. PT REPORTS HE PLANS TO LYE ON HIS SIDE THIS AFTERNOON. PT ENCOURAGED TO PRONE, VERBAZIES UNDERSTANDING. PT DENIES ADDITIONAL REQUESTS OR COMPLAINTS. CALL LIGHT WITHIN REACH. BED RAILS UP.
--- NOTE | 2020-12-07 15:30 | NUR ---
THIS RN TO ROOM TO CHECK ON PT. OXYGEN SATURAITONS 93% ON 4L O2 BY NC. PT LYING ON BACK PT ENCOURAGED TO PRONE OR LYE ON HIS SIDE. PT AGREES AND REPOSITIONS SELF TO PRONE. NO ADDITONAL REQUESTS OR COMPLAINTS. CALL LIGHT WITHIN REACH. BED RAILS UP.
--- NOTE | 2020-12-07 16:30 | NUR ---
THIS RN TO ROOM TO CHECK ON PT. PT RESTING ON RIGHT SIDE, OXGYGEN SATRUATIONS 95-98% ON 4L O2 BY NC. PT WEANED TO 3L O2 BY NC WITH OXYGEN SATRATIONS REMAINING ABOVE 90%. PT TELLS STORIES OF FAMILY AND RAISING HIS PUPPIES. PT DENIES ADDITIONAL REQUESTS OR COMPLAINTS. PTS SMILING AT TIMES AND APPEARS COMFORTABLE. PT REPORTS BACK PAIN IS "ONLY A 4" DENIES NEED FOR MEDICATION AT THIS TIME. PT DENIES ADDITIONAL REQUESTS OR COMPLAINTS. CALL LIGHT WITHIN REACH. PTS PARTNER, KRISTIE, CALLED WITH UPDATE. KRISTIE VERBALIZES UNDERSTANDING OF PLAN OF CARE AND STATES HER QUESTIONS HAVE BEEN ANSWERED.
--- NOTE | 2020-12-07 17:04 | NUR ---
No change in plan for dc.
--- NOTE | 2020-12-07 17:58 | NUR ---
DINNER DELIVERED TO PT. PT CONTINUES RESTING IN BED ON RIGHT SIDE. OXYGEN SATURATIONS 94% ON 3L O2 BY NC. PT INCREASED TO 5L O2 BY NC TO AMBULATE IN ROOM. PT TOLERATES WELL WITH OXYGEN SATURATINS REMAINING ABOVE 90%. STAND BY ASSIST UP TO CHAIR. PT WEANED BACK TO 3L O2 BY NC WITH OXYGEN SATURATINS REMAINING ABOVE 90%. VITAL SIGNS STABLE. PT DENIES ADDITIONAL REQUESTS OR COMPLAINTS. CALL LIGHT WITHIN REACH.
--- NOTE | 2020-12-07 18:46 | NUR ---
THIS RN TO ROOM TO CHECK ON PT PT REMAINS UP TO CHAIR. OXYGEN SATURATIONS 95% ON 3L O2 BY NC. PT DENIES PAIN AND NAUSEA. PT UPDATED ON PLAN OF CARE. PT DENIES ADDITIONAL REQUESTS OR COMPLAINTS AT THIS TIME. CALL LIGHT WITHIN REACH.
--- NOTE | 2020-12-07 18:48 | NUR ---
PT HERE FOR COVID RELATED PNEUMONIA. PT UP WITH STAND BY ASSIT FOR SHOWER AND AROUND ROOM. PT TOLERATING REGULAR DIET WITH INCREASING APPITTIE, PT ALSO DRINKING CLEAR ENSURES. PT WEANED TO 3L O2 BY NC WITH REST, USED 8L O2 WITH SHOWERING AND 5L O2 WHEN AMBULATING IN ROOM THIS EVENING. PT PLANS TO USE CPAP TONIGHT PER MD RECCOMENDATION. PTS URINE POINT OF CARE SPECIALIST IN COLOR AND QUANTIY INCREASING. PT PARTICIPATING IN I.S. USE. DECLINED PRONING THIS SHIFT. PT USES CALL LIGHT APPORPRIATLY AND MAKES NEEDS KNOWN.
--- NOTE | 2020-12-07 22:01 | NUR ---
on airborne isolation precautions. using bipap w 3l, lungs l clear, r with crackles at base, sl lac patent. no c/o pain, proning himself. voiding qs, tolerating diet and fluids, no emesis. no coughat this time. call light at hands reach
--- NOTE | 2020-12-08 00:35 | NUR ---
USING BIPAP/3L BLEEDING IN O2, EYES CLOSED, TURNS AND REPOSITIONS SELF, CALL LIGHT AT BEDSIDE, TOLERATING FLUIDS
--- NOTE | 2020-12-08 03:23 | NUR ---
WEARING BIPAP W BLEED IN O2 3L, AWAKE, PLAYING WITH HIS PHONE, DENIES C/O PAIN OR DISCOMOFRT, NO SOB, TURNS AND REPOSITIONS SELF IN BED. VOIDING DARK YELLOW URINE. USES URINAL, FLUIDS AT BEDSIDE
--- NOTE | 2020-12-08 05:38 | NUR ---
Pt has been using his bipap w 3L, O2 bleeding in, telecpox#[address] sats 97% Pulse mid 40's to mid 60's irregular, denies lightheadnes or cp, denies SOB with exertion, Lungs with crackles and dim at bases. IS at bedside. prones self, turns and repositions self in bed. uses urinal, voiding QS, tolerating liquids well, encourage foods he likes, no emesis, has denied c/o pain.
--- NOTE | 2020-12-08 07:03 | NUR ---
pt awake, playing with phone, using high flow O2 3L NC, no c/o sob, tolerating liquids well. uses call light, voiding qs,in bed sitting up position
--- NOTE | 2020-12-08 09:07 | NUR ---
MORNING ASSESSMENT AND MEDICATON DUE. PT RESTING IN BED ON BACK WORKING ON PHONE. THIS RN ASSISTING PTS PRIMARY RN, OSVALDO, WITH MORNING ASSESSMENT AND MEDICATIONS. PT REPORTS 4/10 LOWER BACK PAIN, DENIES NEED FOR MEDICATION AT THIS TIME. OXGYEN SATURATIONS 93% ON 3L O2 BY NC WHILE PT IS RESTING. STAND BY ASSIST UP AMBULATE IN ROOM AND THEN UP TO CHAIR. OXGYEN SATURATION DROPS TO 88% WITH ACTIVITY, O2 INCREASED TO 4L O2 BY NC WITH OXGYEN SATURATIONS RAPIDLY RISING TO 94%. LUNG SOUNDS CLEAR BUT FOR CRACKELS IN RIGHT LOWER LOBE. PT DEMONSTRATES USE OF I.S. REACHING 1250ML X10. PT REPORTS COUGH CONTINUES, SEE MAR FOR MEDICATION GIVEN. PT REMAINS UP TO CHAIR. PT WEANED BACK TO 3L O2 BY NC AND MAINTAINING OXGYEN SATURATIONS ABOVE 90%. EDUCATION DONE WITH PT REGARDING HOME OXGYEN USE AND HOME OXGYEN TRIAL. PT VERBALIZES UNDERSTANDING AND STATES HIS QUESTIONS HAVE BEEN ANSWERED. NO ADDITIONAL REQUESTS OR COMPLAINTS. CALL LIGHT WITHIN REACH.
--- NOTE | 2020-12-08 11:27 | NUR ---
PT SITTING IN CHAIR. NO NEW CONCERNS NOTED AT THIS TIME.
[2020-12-08] MEDS ORDERED: BENZONATATE100 MG PO (12:38)
[2020-12-08] MEDS ORDERED: DEXAMETHASONE6 MG PO (12:38)
--- NOTE | 2020-12-08 12:38 | NUR ---
SPOKE WITH PATIENT THIS MORNING AND HE WANTS TO USE [facility] FOR HOME OXYGEN NEEDS. FAXED RT QUALIFIER/RX/CLINICALS TO [facility] WITH CONFIRMATION AT 1132PM.
== END 2020-12-08 14:30 | disposition home or self-care (01) | DRG 177 ==
LOC: ED 00:59 → MS 04:34 → CCU 04:34 → MS 18:50
PROVIDERS: ADMIT Internal Medicine; ATTEND Internal Medicine
PROC: 3E0DX3Z Introduction of Anti-inflammatory into Mouth and Pharynx, External Approach (ICD-10-PCS; 2020-11-30)
PROC: 5A0935A Assistance with Respiratory Ventilation, Less than 24 Consecutive Hours, High Flow/Velocity Cannula (ICD-10-PCS; principal; 2020-12-01)
PROC: 5A09457 Assistance with Respiratory Ventilation, 24-96 Consecutive Hours, Continuous Positive Airway Pressure (ICD-10-PCS; 2020-12-01)
DX: U07.1 COVID-19 (principal); J12.82 Pneumonia due to coronavirus disease 2019; J96.01 Acute respiratory failure with hypoxia; E87.1 Hypo-osmolality and hyponatremia; B17.9 Acute viral hepatitis, unspecified; E87.6 Hypokalemia; R74.01 Elevation of levels of liver transaminase levels; E83.42 Hypomagnesemia; D69.59 Other secondary thrombocytopenia
CPT/HCPCS: 36600; 71045; 71260; 76705; 80053; 82803; 83690; 83735; 84484; 85025; 93005; 93010; 94660; 94667; 94668; 94760; 94761; 94762; 94799; A9270; C9803; J1170; J1650; J2405; J3475; J7121; Q9967; U0003

== ENCOUNTER 2024-12-16 07:48 | Day surgery (SDC) | payer MEDICARE, OTHER ==
[~2024-12-16] VITALS: Ht 185.4 cm; Wt 105.0 kg
[~2024-12-16 07:48] MED LIST: BENZONATATE100 MG PO; DEXAMETHASONE6 MG PO; IBLOOD GLUCOSE TEST STRIP 1 EA TEST VI PRN; LACTATED RINGER'S 1,000 ML IV SCH; LIDOCAINE HCL 1% 5 ML SDV INJ ONE
[2024-12-16 08:15] VITALS: BP 133/95
[2024-12-16] MEDS ORDERED: ATORVASTATIN CA20 MG PO (08:15)
[2024-12-16] MEDS ORDERED: LIDOCAINE HCL 2% 5 ML SDV ONE (09:20)
--- NOTE | 2024-12-16 15:17 | NUR ---
12/16/24 1517 Sheets,Miriam 1018 PT ARRIVED TO PACU ON 6L VIA MASK, PT ASLEEP AND RESP EVEN AND UNLABORED. 1039 PT WOKE TO TACTILE STIMULI AND IS REORIENTED TO PACU. O2 MASK REMOVED. PT ROLLED TO BACK AND HOB INCREASED. PT DENIES THE NEED TO DRINK ANYTHING. 1110 PT DRESSED HIMSELF AND DC INSTRUCTIONS GIVEN. PT DENEIS CONCERNS AND DC VIA WC TO HIS SIGNIFICANT OTHER. DC PAPERWORK GIVEN.
[2024-12-16 15:18] VITALS: BP 107/67
--- NOTE | 2024-12-20 20:40 | PATH ---
[facility] [address] [place], [place] [address] Signed SPECIMEN(S): A COLON POLYP AT 5 CM SPECIMEN SOURCE: A. COLON POLYP AT 5 CM CLINICAL HISTORY: Pre-op: Screening. Postop: Polyp. FINAL PATHOLOGIC DIAGNOSIS: Colon, polyp at 5 cm, biopsy: - Hyperplastic polyp. - Negative for dysplasia and malignancy. SDL MICROSCOPIC EXAMINATION: Histologic sections of all submitted blocks are examined by light microscopy. These findings, together with the gross examination, support the pathologic diagnosis. GROSS DESCRIPTION: The specimen, labeled and designated "Grimes, colon polyp at 5 cm," is received in formalin and consists of one mitchell soft tissue fragment, 0.1 cm. Entirely submitted in (A1). JS (under the direct supervision of a pathologist) The Gross Description was prepared using a voice recognition system. The report was reviewed for accuracy; however, sound-alike word errors, addition and/or deletions may occur. If there are any questions about this report, please contact Client Services. ADDITIONAL NOTES: Immunohistochemical and/or in situ hybridization studies if performed in this case included appropriate positive controls that reacted as expected. This test was developed and its performance characteristics determined by [facility]. It has not been cleared or approved by the U.S. Food and Drug Administration. The FDA has determined that such clearance or approval is not necessary. This test is used for clinical purposes. It should not be regarded as investigational or for research. [facility] is certified under the Clinical Laboratory Improvement Amendments of 1988 (CLIA) as qualified to perform high complexity clinical laboratory testing. PATIENT NAME: EMRE GRIMES PATHOLOGY DATE OF : 57 REPORT #: [id number] PHYSICIAN: LOBITO LOPEZ PCP: REX MCFARLANE PAC REPORT IS CONFIDENTIAL AND NOT TO BE RELEASED WITHOUT AUTHORIZATION [address] [address] Signed PERFORMING LABORATORY: Technical component was performed by [facility], [address] [place] [id number] (CLIA# [id number]). [facility], [address] [place] [id number] (CLIA#: [id number]). Diagnostician: Vidya Nixon MD Pathologist Electronically Signed 12/20/2024 Copies: ~ PATIENT NAME: EMRE GRIMES PATHOLOGY DATE OF : 57 REPORT #: [id number] PHYSICIAN: LOBITO LOPEZ PCP: REX [facility]ARLANE PAC REPORT IS CONFIDENTIAL AND NOT TO BE RELEASED WITHOUT AUTHORIZATION
== END 2024-12-16 11:10 | disposition home or self-care (01) ==
LOC: OPS 07:48 → DS 07:48 → OPS 10:15 → DS 11:00 → OPS 11:00
PROVIDERS: ATTEND Surgery
PROC: 0DBP8ZX Excision of Rectum, Via Natural or Artificial Opening Endoscopic, Diagnostic (ICD-10-PCS; principal; 2024-12-16 10:15)
DX: Z12.11 Encounter for screening for malignant neoplasm of colon (principal); K62.1 Rectal polyp; K21.9 Gastro-esophageal reflux disease without esophagitis
CPT/HCPCS: 00811; J2003; J2704; J7121